=== PATIENT | male | born 2005 | race African-American/Black ===

== ENCOUNTER 2024-06-30 20:01 | Emergency (ER) | payer MEDICAID ==
[~2024-06-30] VITALS: Ht 177.8 cm; Wt 79.5 kg
[2024-06-30 20:03] VITALS: BP 145/74; O2SAT 99
[2024-06-30] MEDS ORDERED: IBUP-1984 PO (22:03)
[2024-06-30 22:31] VITALS: PULSE 70; RESP 16; TEMP 98.3
== END 2024-06-30 22:33 | disposition home or self-care (01) ==
LOC: ER 20:02
DX: M25.512 Pain in left shoulder (principal); Z88.0 Allergy status to penicillin; Z79.1 Long term (current) use of non-steroidal anti-inflammatories (NSAID)
CPT/HCPCS: 71046; 73030; 99284